=== PATIENT | male | born 1930 | race Caucasian/White ===

== ENCOUNTER 2017-08-14 10:31 | Inpatient (IN) ==
[2017-08-14] MEDS ORDERED: SODIUM CHLORIDE 0.9% 1,000 ML IV STA (11:36)
[2017-08-14 12:35] LABS: Basophils % 0.3 % (0.0-0.8); Eosinophils % 0.5 % (0.00-10.9); Hematocrit 34.4 VOL% (42.0-52.0); Immature Granulocytes % 0.8 %; Immature Granulocytes Absolute 0.05 #; Lymphocytes # 1.1 10*3/uL (1.4-4.0); Lymphocytes % 15.9 % (21.2-54.2); Mean Corpuscular HGB Conc 34.9 GM/DL (32-36); Mean Corpuscular Hemoglobin 32 PG (27-34); Mean Corpuscular Volume 91.2 FL (87-102); Mean Platelet Volume 11.3 FL (9.6-12.0); Monocytes # 1.2 10*3/uL (0.11-0.8); Monocytes % 18.2 % (1.7-12.7); Neutrophils # 4.2 10*3/uL (1.4-7.4); Neutrophils % 64.3 % (38.7-73.9); Platelet Count 161 T/CUMM (130-400); Red Blood Count 3.77 MC/CUMM (3.8-5.5); Red Cell Distribution Width 11.9 % (9.3-17.3); White Blood Count 6.6 T/CUMM (4-12)
[2017-08-14 12:40] LABS: INR 1.1; PT Patient Result 11.1 SECS
[2017-08-14 12:51] LABS: Alanine Aminotransferase 17 U/L (16-61); Albumin 3.7 G/DL (3.4-5.0); Alkaline Phosphatase 102 U/L (45-117); Aspartate Amino Transferase 25 U/L (0-37); Blood Urea Nitrogen 20 MG/DL (7-18); Glucose 104 MG/DL (74-106); Osmolality,Calculated 262.8 MOS/KG (273-304); Potassium 4.2 MMOL/L (3.5-5.1); Sodium 130 MMOL/L (136-145); Troponin I Only < 0.015 NG/ML (0.00-0.045)
[2017-08-14 13:33] LABS: Apearance,Urine CLEAR (Clear); Bilirubin,Urine Negative (Negative); Blood, Urine Negative (Negative); Glucose,Urine (UA) Negative (Negative); Hyaline Casts,Urine 6 /LPF (0-3); Ketones,Urine 5 mg/dL (Negative); Mucus,Urine Occasional /LPF (Occasional); Nitrite,Urine Negative (Negative); Protein,Urine Negative; RBC,Urine 2 /HPF (0-4); Squamous Epithelial Cell,Urine Occasional /HPF (0-10); Urine Color Yellow (Yellow); Urine Specific Gravity 1.011 (1.001-1.035); Urine Urobilinogen < 2.0 EU/DL (0.2-1.0); WBC,Urine 1 /HPF (0-6)
[2017-08-14 13:34] LABS: Lymphocytes 7 % (20-55); Platelet Estimate Adequate; Poikilocytosis Slight; Segmented Neutrophils 79 % (50-85); Tear Drop Cells Slight; Total Cells Counted 100
[2017-08-14 13:41] LABS: Barbiturates Screen,Urine Negative (Negative); Benzodiazepines Screen,Urine Negative (Negative); Cannabinoid Screen,Urine Negative (Negative); Opiate Screen,Urine Positive (Negative); Phencyclidine Screen,Urine Negative (Negative)
[2017-08-14] MEDS ORDERED: ONDANSETRON 4 MG/2 ML VIAL IV PRN (15:39)
[2017-08-14] MEDS: CYANOCOBALAMIN 500 MCG TABLET PO SCH (20:16)
[2017-08-14] MEDS: MAGNESIUM OXIDE 400 MG TABLET PO SCH (20:16)
[2017-08-14] MEDS: ATORVASTATIN 20 MG TABLET PO SCH (20:17)
[2017-08-14] MEDS: SODIUM CHLORIDE 0.9% 1,000 ML IV SCH (21:10)
[2017-08-15 02:44] LABS: Apearance,Urine CLEAR (Clear); Bilirubin,Urine Negative (Negative); Blood, Urine Moderate mg/dL (Negative); Glucose,Urine (UA) Negative (Negative); Ketones,Urine Negative (Negative); Mucus,Urine Occasional /LPF (Occasional); Nitrite,Urine Negative (Negative); Protein,Urine Negative; RBC,Urine 9 /HPF (0-4); Urine Color Straw (Yellow); Urine Specific Gravity 1.008 (1.001-1.035); Urine Urobilinogen < 2.0 EU/DL (0.2-1.0); WBC,Urine 1 /HPF (0-6)
[2017-08-15 05:19] LABS: Basophils % 0.3 % (0.0-0.8); Eosinophils % 0.3 % (0.00-10.9); Hematocrit 33.9 VOL% (42.0-52.0); Hemoglobin 11.7 GM/DL (14.0-18.0); Immature Granulocytes % 0.8 %; Immature Granulocytes Absolute 0.05 #; Lymphocytes % 16.5 % (21.2-54.2); Mean Corpuscular HGB Conc 34.5 GM/DL (32-36); Mean Corpuscular Hemoglobin 31 PG (27-34); Mean Corpuscular Volume 89.2 FL (87-102); Mean Platelet Volume 11.4 FL (9.6-12.0); Monocytes # 1.1 10*3/uL (0.11-0.8); Monocytes % 17.3 % (1.7-12.7); Neutrophils % 64.8 % (38.7-73.9); Platelet Count 151 T/CUMM (130-400); Red Cell Distribution Width 11.6 % (9.3-17.3); White Blood Count 6.2 T/CUMM (4-12)
[2017-08-15 05:48] LABS: Calcium 8.8 MG/DL (8.5-10.1); Osmolality,Calculated 268.4 MOS/KG (273-304); Potassium 3.9 MMOL/L (3.5-5.1)
[2017-08-15 05:49] LABS: Hypochromasia 1+; Lymphocytes 14 % (20-55); Microcytosis Slight; Segmented Neutrophils 71 % (50-85); Total Cells Counted 100
[2017-08-15 05:50] LABS: Platelet Estimate Adequate
[2017-08-15] MEDS: PANTOPRAZOLE 40 MG TABLET PO SCH (09:40)
[2017-08-15] MEDS: TAMSULOSIN 0.4 MG CAPSULE PO SCH (09:40)
[2017-08-15] MEDS: BENAZEPRIL 5 MG TABLET PO SCH (09:40)
[2017-08-15] MEDS: MAGNESIUM OXIDE 400 MG TABLET PO SCH ×2 (09:40→20:55)
[2017-08-15] MEDS: CYANOCOBALAMIN 500 MCG TABLET PO SCH ×2 (09:40→20:55)
[2017-08-15] MEDS: METOPROLOL TARTRATE 25 MG TABLET PO SCH (09:40)
[2017-08-15] MEDS ORDERED: ZIPRASIDONE 20 MG CAPSULE PO ONE (10:30)
[2017-08-15] MEDS ORDERED: HALOPERIDOL 5 MG/ML AMP IM ONE (15:52)
[2017-08-15] MEDS ORDERED: LORazepam 2 MG/1 ML VIAL IM ONE (15:53)
[2017-08-15] MEDS ORDERED: hydrALAZINE 20 MG/1 ML VIAL IV PRN (18:32)
[2017-08-15] MEDS: ATORVASTATIN 20 MG TABLET PO SCH (20:54)
[2017-08-16] MEDS ORDERED: LORazepam 2 MG/1 ML VIAL IM ONE (00:39)
[2017-08-16] MEDS ORDERED: HALOPERIDOL 5 MG/ML AMP IM ONE (00:39)
[2017-08-16 06:40] LABS: Calcium 8.9 MG/DL (8.5-10.1); Potassium 3.8 MMOL/L (3.5-5.1)
[2017-08-16 06:41] LABS: Basophils % 0.2 % (0.0-0.8); Hemoglobin 13.4 GM/DL (14.0-18.0); Immature Granulocytes % 0.6 %; Immature Granulocytes Absolute 0.07 #; Lymphocytes # 0.7 10*3/uL (1.4-4.0); Lymphocytes % 6.2 % (21.2-54.2); Mean Corpuscular HGB Conc 33.5 GM/DL (32-36); Mean Corpuscular Hemoglobin 31 PG (27-34); Mean Corpuscular Volume 91.7 FL (87-102); Mean Platelet Volume 11.6 FL (9.6-12.0); Monocytes # 1.5 10*3/uL (0.11-0.8); Platelet Count 177 T/CUMM (130-400); Red Blood Count 4.36 MC/CUMM (3.8-5.5); Red Cell Distribution Width 11.8 % (9.3-17.3); White Blood Count 11.3 T/CUMM (4-12)
[2017-08-16] MEDS ORDERED: ZIPRASIDONE 20 MG/1 ML VIAL IM PRN (08:44)
[2017-08-16] MEDS: METOPROLOL TARTRATE 25 MG TABLET PO SCH (09:27)
[2017-08-16] MEDS: CYANOCOBALAMIN 500 MCG TABLET PO SCH ×2 (09:27→20:44)
[2017-08-16] MEDS: PANTOPRAZOLE 40 MG TABLET PO SCH (09:27)
[2017-08-16] MEDS: BENAZEPRIL 5 MG TABLET PO SCH (09:27)
[2017-08-16] MEDS: TAMSULOSIN 0.4 MG CAPSULE PO SCH (09:28)
[2017-08-16] MEDS: MAGNESIUM OXIDE 400 MG TABLET PO SCH ×2 (09:28→20:43)
[2017-08-16 09:29] LABS: Basophils % 0.2 % (0.0-0.8); Hematocrit 39.7 VOL% (42.0-52.0); Hemoglobin 13.2 GM/DL (14.0-18.0); Immature Granulocytes % 0.7 %; Immature Granulocytes Absolute 0.08 #; Lymphocytes # 0.6 10*3/uL (1.4-4.0); Lymphocytes % 5.3 % (21.2-54.2); Mean Corpuscular HGB Conc 33.2 GM/DL (32-36); Mean Corpuscular Hemoglobin 30 PG (27-34); Mean Corpuscular Volume 91.5 FL (87-102); Mean Platelet Volume 11.2 FL (9.6-12.0); Monocytes # 1.3 10*3/uL (0.11-0.8); Monocytes % 10.8 % (1.7-12.7); Neutrophils # 10.1 10*3/uL (1.4-7.4); Platelet Count 192 T/CUMM (130-400); Red Blood Count 4.34 MC/CUMM (3.8-5.5); Red Cell Distribution Width 11.9 % (9.3-17.3); White Blood Count 12.1 T/CUMM (4-12)
[2017-08-16 09:59] LABS: Albumin 3.4 G/DL (3.4-5.0); Bilirubin,Total 1.2 MG/DL (0.2-1.0); Calcium 9.2 MG/DL (8.5-10.1); Osmolality,Calculated 275.1 MOS/KG (273-304); Potassium 3.8 MMOL/L (3.5-5.1)
[2017-08-16 13:46] LABS: Glucose,CSF 70 MG/DL (40-70)
[2017-08-16 14:10] LABS: Appearance,CSF Clear; Lymphocytes,CSF 83 %; Monocytes,CSF 12 %; Neutrophils,CSF 2 %; Red Blood Cell,CSF 160 C/CUMM; White Blood Cell,CSF 44 C/CUMM
[2017-08-16] MEDS: ATORVASTATIN 20 MG TABLET PO SCH (20:44)
[2017-08-16] MEDS: SODIUM CHLORIDE 0.9% 1,000 ML IV SCH (20:48)
[2017-08-17 05:32] LABS: Basophils % 0.1 % (0.0-0.8); Hematocrit 35.7 VOL% (42.0-52.0); Hemoglobin 12.4 GM/DL (14.0-18.0); Immature Granulocytes % 0.8 %; Immature Granulocytes Absolute 0.09 #; Lymphocytes # 0.9 10*3/uL (1.4-4.0); Lymphocytes % 7.4 % (21.2-54.2); Mean Corpuscular HGB Conc 34.7 GM/DL (32-36); Mean Corpuscular Hemoglobin 31 PG (27-34); Mean Corpuscular Volume 89.3 FL (87-102); Mean Platelet Volume 11.4 FL (9.6-12.0); Monocytes # 1.2 10*3/uL (0.11-0.8); Monocytes % 10.1 % (1.7-12.7); Neutrophils # 9.7 10*3/uL (1.4-7.4); Neutrophils % 81.6 % (38.7-73.9); Platelet Count 178 T/CUMM (130-400); Red Cell Distribution Width 11.9 % (9.3-17.3); White Blood Count 11.8 T/CUMM (4-12)
[2017-08-17 06:10] LABS: Calcium 8.4 MG/DL (8.5-10.1); Osmolality,Calculated 276.8 MOS/KG (273-304); Potassium 3.8 MMOL/L (3.5-5.1)
[2017-08-17] MEDS: PANTOPRAZOLE 40 MG TABLET PO SCH (09:19)
[2017-08-17] MEDS: METOPROLOL TARTRATE 25 MG TABLET PO SCH (09:19)
[2017-08-17] MEDS: MAGNESIUM OXIDE 400 MG TABLET PO SCH ×2 (09:20→21:29)
[2017-08-17] MEDS: CYANOCOBALAMIN 500 MCG TABLET PO SCH ×2 (09:20→21:29)
[2017-08-17] MEDS: BENAZEPRIL 5 MG TABLET PO SCH (09:20)
[2017-08-17] MEDS: TAMSULOSIN 0.4 MG CAPSULE PO SCH (09:20)
[2017-08-17] MEDS: cefTRIAXone 2,000 MG in SYRINGE 1 EACH IV SCH ×2 (09:32→21:30)
[2017-08-17] MEDS: AMPICILLIN INJ 2,000 MG in SODIUM CHLORIDE 0.9% 100 ML IV SCH ×3 (09:39→21:41)
[2017-08-17] MEDS: ACYCLOVIR INJ 850 MG in SODIUM CHLORIDE 0.9% 250 ML IV SCH ×2 (10:44→17:35)
[2017-08-17] MEDS: TROLAMINE SALICYLATE 10% CREAM 85 GM TUBE TOP PRN (15:14)
[2017-08-17] MEDS: ATORVASTATIN 20 MG TABLET PO SCH (21:29)
[2017-08-18] MEDS: ACYCLOVIR INJ 850 MG in SODIUM CHLORIDE 0.9% 250 ML IV SCH ×3 (00:50→17:02)
[2017-08-18] MEDS: AMPICILLIN INJ 2,000 MG in SODIUM CHLORIDE 0.9% 100 ML IV SCH ×2 (04:30→10:35)
[2017-08-18] MEDS: SODIUM CHLORIDE 0.9% 1,000 ML IV SCH (05:58)
[2017-08-18 06:31] LABS: Albumin 2.5 G/DL (3.4-5.0); Bilirubin,Total 0.8 MG/DL (0.2-1.0); Calcium 8.4 MG/DL (8.5-10.1); Osmolality,Calculated 276.7 MOS/KG (273-304); Potassium 3.5 MMOL/L (3.5-5.1); Total Protein 5.8 G/DL (6.4-8.3)
[2017-08-18 06:47] LABS: Basophils % 0.2 % (0.0-0.8); Eosinophils # 0.1 10*3/uL (0.0-0.87); Eosinophils % 0.5 % (0.00-10.9); Hematocrit 35.7 VOL% (42.0-52.0); Immature Granulocytes % 0.6 %; Immature Granulocytes Absolute 0.06 #; Lymphocytes # 0.8 10*3/uL (1.4-4.0); Lymphocytes % 7.1 % (21.2-54.2); Mean Corpuscular HGB Conc 33.6 GM/DL (32-36); Mean Corpuscular Hemoglobin 31 PG (27-34); Mean Platelet Volume 11.5 FL (9.6-12.0); Monocytes # 1.2 10*3/uL (0.11-0.8); Monocytes % 11.1 % (1.7-12.7); Neutrophils # 8.8 10*3/uL (1.4-7.4); Neutrophils % 80.5 % (38.7-73.9); Platelet Count 171 T/CUMM (130-400); Red Blood Count 3.88 MC/CUMM (3.8-5.5); Red Cell Distribution Width 11.8 % (9.3-17.3); White Blood Count 10.9 T/CUMM (4-12)
[2017-08-18] MEDS: TROLAMINE SALICYLATE 10% CREAM 85 GM TUBE TOP PRN (08:59)
[2017-08-18] MEDS: CYANOCOBALAMIN 500 MCG TABLET PO SCH ×2 (08:59→21:41)
[2017-08-18] MEDS: cefTRIAXone 2,000 MG in SYRINGE 1 EACH IV SCH ×2 (08:59→21:47)
[2017-08-18] MEDS: BENAZEPRIL 5 MG TABLET PO SCH (09:00)
[2017-08-18] MEDS: MAGNESIUM OXIDE 400 MG TABLET PO SCH ×2 (09:00→21:41)
[2017-08-18] MEDS: PANTOPRAZOLE 40 MG TABLET PO SCH (09:00)
[2017-08-18] MEDS: METOPROLOL TARTRATE 25 MG TABLET PO SCH (09:00)
[2017-08-18] MEDS: TAMSULOSIN 0.4 MG CAPSULE PO SCH (09:00)
[2017-08-18] MEDS: ACETAMINOPHEN 325 MG TABLET PO PRN (10:36)
[2017-08-18] MEDS: ATORVASTATIN 20 MG TABLET PO SCH (21:41)
[2017-08-19] MEDS: ACYCLOVIR INJ 850 MG in SODIUM CHLORIDE 0.9% 250 ML IV SCH ×3 (00:57→16:43)
[2017-08-19 05:35] LABS: Basophils % 0.2 % (0.0-0.8); Eosinophils # 0.1 10*3/uL (0.0-0.87); Eosinophils % 1.2 % (0.00-10.9); Hematocrit 31.2 VOL% (42.0-52.0); Hemoglobin 10.4 GM/DL (14.0-18.0); Immature Granulocytes % 0.8 %; Immature Granulocytes Absolute 0.07 #; Lymphocytes % 12.5 % (21.2-54.2); Mean Corpuscular HGB Conc 33.3 GM/DL (32-36); Mean Corpuscular Hemoglobin 30 PG (27-34); Mean Corpuscular Volume 91.2 FL (87-102); Mean Platelet Volume 10.9 FL (9.6-12.0); Monocytes # 1.1 10*3/uL (0.11-0.8); Neutrophils % 72.3 % (38.7-73.9); Platelet Count 168 T/CUMM (130-400); Red Blood Count 3.42 MC/CUMM (3.8-5.5); Red Cell Distribution Width 11.6 % (9.3-17.3); White Blood Count 8.3 T/CUMM (4-12)
[2017-08-19 05:59] LABS: Albumin 2.3 G/DL (3.4-5.0); Bilirubin,Total 0.6 MG/DL (0.2-1.0); Calcium 7.7 MG/DL (8.5-10.1); Osmolality,Calculated 270.1 MOS/KG (273-304); Potassium 3.3 MMOL/L (3.5-5.1); Total Protein 4.9 G/DL (6.4-8.3)
[2017-08-19] MEDS: ACETAMINOPHEN 325 MG TABLET PO PRN ×2 (06:30→15:35)
[2017-08-19] MEDS: MAGNESIUM OXIDE 400 MG TABLET PO SCH ×2 (09:04→21:21)
[2017-08-19] MEDS: METOPROLOL TARTRATE 25 MG TABLET PO SCH (09:04)
[2017-08-19] MEDS: PANTOPRAZOLE 40 MG TABLET PO SCH (09:04)
[2017-08-19] MEDS: CYANOCOBALAMIN 500 MCG TABLET PO SCH ×2 (09:04→21:21)
[2017-08-19] MEDS: TAMSULOSIN 0.4 MG CAPSULE PO SCH (09:04)
[2017-08-19] MEDS: BENAZEPRIL 5 MG TABLET PO SCH (09:05)
[2017-08-19] MEDS: cefTRIAXone 2,000 MG in SYRINGE 1 EACH IV SCH ×2 (09:06→21:21)
[2017-08-19] MEDS: SODIUM CHLORIDE 0.9% 1,000 ML IV SCH (09:07)
[2017-08-19] MEDS: POTASSIUM CHLORIDE 20 MEQ TABLET PO PRN ×2 (14:37→16:43)
[2017-08-19] MEDS: ATORVASTATIN 20 MG TABLET PO SCH (21:21)
[2017-08-20] MEDS: SODIUM CHLORIDE 0.9% 1,000 ML IV SCH (00:24)
[2017-08-20] MEDS: ACYCLOVIR INJ 850 MG in SODIUM CHLORIDE 0.9% 250 ML IV SCH ×3 (00:26→18:18)
[2017-08-20 05:25] LABS: Basophils % 0.3 % (0.0-0.8); Eosinophils # 0.3 10*3/uL (0.0-0.87); Eosinophils % 3.2 % (0.00-10.9); Hematocrit 33.8 VOL% (42.0-52.0); Hemoglobin 11.1 GM/DL (14.0-18.0); Immature Granulocytes % 1.4 %; Immature Granulocytes Absolute 0.13 #; Lymphocytes # 1.5 10*3/uL (1.4-4.0); Lymphocytes % 15.6 % (21.2-54.2); Mean Corpuscular HGB Conc 32.8 GM/DL (32-36); Mean Corpuscular Hemoglobin 30 PG (27-34); Mean Corpuscular Volume 92.1 FL (87-102); Mean Platelet Volume 11.2 FL (9.6-12.0); Monocytes # 1.2 10*3/uL (0.11-0.8); Monocytes % 12.7 % (1.7-12.7); Neutrophils # 6.2 10*3/uL (1.4-7.4); Neutrophils % 66.8 % (38.7-73.9); Platelet Count 188 T/CUMM (130-400); Red Blood Count 3.67 MC/CUMM (3.8-5.5); Red Cell Distribution Width 11.4 % (9.3-17.3); White Blood Count 9.3 T/CUMM (4-12)
[2017-08-20 06:02] LABS: Albumin 2.6 G/DL (3.4-5.0); Calcium 8.7 MG/DL (8.5-10.1); Osmolality,Calculated 274.7 MOS/KG (273-304); Potassium 3.8 MMOL/L (3.5-5.1); Total Protein 5.6 G/DL (6.4-8.3)
[2017-08-20 07:41] LABS: M. Tuberculosis PCR Result Negative (Negative); M. Tuberculosis PCR Source CSF
[2017-08-20] MEDS: CYANOCOBALAMIN 500 MCG TABLET PO SCH ×2 (09:35→21:39)
[2017-08-20] MEDS: BENAZEPRIL 5 MG TABLET PO SCH (09:35)
[2017-08-20] MEDS: METOPROLOL TARTRATE 25 MG TABLET PO SCH (09:35)
[2017-08-20] MEDS: TAMSULOSIN 0.4 MG CAPSULE PO SCH (09:35)
[2017-08-20] MEDS: PANTOPRAZOLE 40 MG TABLET PO SCH (09:35)
[2017-08-20] MEDS: MAGNESIUM OXIDE 400 MG TABLET PO SCH ×2 (09:35→21:39)
[2017-08-20] MEDS: cefTRIAXone 2,000 MG in SYRINGE 1 EACH IV SCH ×2 (09:36→21:42)
[2017-08-20] MEDS ORDERED: ALPRAZolam 0.5 MG TABLET PO PRN (15:17)
[2017-08-20] MEDS ORDERED: ALPRAZolam 0.5 MG TABLET PO ONE ×2 (15:17→23:00)
[2017-08-20] MEDS: QUEtiapine 25 MG TABLET PO SCH (18:18)
[2017-08-20] MEDS: ATORVASTATIN 20 MG TABLET PO SCH (21:40)
[2017-08-21] MEDS: TROLAMINE SALICYLATE 10% CREAM 85 GM TUBE TOP PRN (00:15)
[2017-08-21] MEDS: SODIUM CHLORIDE 0.9% 1,000 ML IV SCH (01:35)
[2017-08-21] MEDS: ACYCLOVIR INJ 850 MG in SODIUM CHLORIDE 0.9% 250 ML IV SCH ×2 (01:35→09:50)
[2017-08-21 05:44] LABS: Basophils % 0.2 % (0.0-0.8); Eosinophils # 0.1 10*3/uL (0.0-0.87); Eosinophils % 1.7 % (0.00-10.9); Hemoglobin 10.3 GM/DL (14.0-18.0); Immature Granulocytes % 1.7 %; Immature Granulocytes Absolute 0.14 #; Lymphocytes % 12.5 % (21.2-54.2); Mean Corpuscular HGB Conc 34.3 GM/DL (32-36); Mean Corpuscular Hemoglobin 30 PG (27-34); Mean Corpuscular Volume 88.5 FL (87-102); Mean Platelet Volume 10.8 FL (9.6-12.0); Monocytes % 12.5 % (1.7-12.7); Neutrophils % 71.4 % (38.7-73.9); Platelet Count 233 T/CUMM (130-400); Red Blood Count 3.39 MC/CUMM (3.8-5.5); Red Cell Distribution Width 11.6 % (9.3-17.3); White Blood Count 8.3 T/CUMM (4-12)
[2017-08-21 06:18] LABS: Calcium 7.8 MG/DL (8.5-10.1); Osmolality,Calculated 280.3 MOS/KG (273-304); Potassium 3.3 MMOL/L (3.5-5.1)
[2017-08-21] MEDS ORDERED: POTASSIUM CHLORIDE RIDER 20 MEQ in PREMIX 1 EACH IV ONE (09:00)
[2017-08-21] MEDS: MAGNESIUM OXIDE 400 MG TABLET PO SCH ×2 (09:43→20:43)
[2017-08-21] MEDS: CYANOCOBALAMIN 500 MCG TABLET PO SCH ×2 (09:43→20:44)
[2017-08-21] MEDS: PANTOPRAZOLE 40 MG TABLET PO SCH (09:43)
[2017-08-21] MEDS: TAMSULOSIN 0.4 MG CAPSULE PO SCH (09:44)
[2017-08-21] MEDS: BENAZEPRIL 5 MG TABLET PO SCH (09:44)
[2017-08-21] MEDS: METOPROLOL TARTRATE 25 MG TABLET PO SCH (09:44)
[2017-08-21] MEDS: cefTRIAXone 2,000 MG in SYRINGE 1 EACH IV SCH (09:47)
[2017-08-21] MEDS: SODIUM CHLOR 0.9% KCL 20 MEQ 20 MEQ/1,000 ML BAG IV SCH (10:55)
[2017-08-21] MEDS ORDERED: MAGNESIUM SULF RIDER 2 GM in PREMIX 1 EACH IV ONE (11:24)
[2017-08-21] MEDS: QUEtiapine 25 MG TABLET PO SCH (17:47)
[2017-08-21] MEDS: ATORVASTATIN 20 MG TABLET PO SCH (20:44)
[2017-08-22 01:48] LABS: Basophils % 0.3 % (0.0-0.8); Eosinophils # 0.3 10*3/uL (0.0-0.87); Eosinophils % 3.2 % (0.00-10.9); Hematocrit 35.5 VOL% (42.0-52.0); Hemoglobin 11.6 GM/DL (14.0-18.0); Immature Granulocytes % 2.4 %; Immature Granulocytes Absolute 0.21 #; Lymphocytes # 1.5 10*3/uL (1.4-4.0); Lymphocytes % 16.5 % (21.2-54.2); Mean Corpuscular HGB Conc 32.7 GM/DL (32-36); Mean Corpuscular Hemoglobin 30 PG (27-34); Mean Corpuscular Volume 92.7 FL (87-102); Mean Platelet Volume 11.7 FL (9.6-12.0); Monocytes # 0.9 10*3/uL (0.11-0.8); Monocytes % 10.4 % (1.7-12.7); Neutrophils # 5.9 10*3/uL (1.4-7.4); Neutrophils % 67.2 % (38.7-73.9); Platelet Count 196 T/CUMM (130-400); Red Blood Count 3.83 MC/CUMM (3.8-5.5); Red Cell Distribution Width 11.9 % (9.3-17.3); White Blood Count 8.8 T/CUMM (4-12)
[2017-08-22 02:13] LABS: Calcium 8.7 MG/DL (8.5-10.1); Osmolality,Calculated 279.4 MOS/KG (273-304); Potassium 3.9 MMOL/L (3.5-5.1)
[2017-08-22 04:37] LABS: Ovalocytes Slight
[2017-08-22 04:38] LABS: Hypochromasia 1+; Microcytosis Slight; Platelet Estimate Adequate
[2017-08-22] MEDS: BENAZEPRIL 5 MG TABLET PO SCH (08:55)
[2017-08-22] MEDS: MAGNESIUM OXIDE 400 MG TABLET PO SCH ×2 (08:55→21:31)
[2017-08-22] MEDS: CYANOCOBALAMIN 500 MCG TABLET PO SCH ×2 (08:55→21:30)
[2017-08-22] MEDS: METOPROLOL TARTRATE 25 MG TABLET PO SCH (08:56)
[2017-08-22] MEDS: PANTOPRAZOLE 40 MG TABLET PO SCH (08:57)
[2017-08-22] MEDS: TAMSULOSIN 0.4 MG CAPSULE PO SCH (08:57)
[2017-08-22] MEDS: SODIUM CHLOR 0.9% KCL 20 MEQ 20 MEQ/1,000 ML BAG IV SCH (08:59)
[2017-08-22] MEDS ORDERED: cefTRIAXone 2,000 MG in SYRINGE 1 EACH IV SCH (09:00)
[2017-08-22] MEDS ORDERED: SODIUM CHLOR 0.9% KCL 20 MEQ 20 MEQ/1,000 ML BAG IV SCH (09:00)
[2017-08-22] MEDS: ACETAMINOPHEN 325 MG TABLET PO PRN (17:39)
[2017-08-22] MEDS: QUEtiapine 25 MG TABLET PO SCH (17:39)
[2017-08-22] MEDS: ATORVASTATIN 20 MG TABLET PO SCH (21:30)
[2017-08-22] MEDS: MEMANTINE 5 MG TABLET PO SCH (21:31)
[2017-08-23] MEDS: SODIUM CHLOR 0.9% KCL 20 MEQ 20 MEQ/1,000 ML BAG IV SCH (04:13)
[2017-08-23 06:17] LABS: Basophils % 0.2 % (0.0-0.8); Eosinophils # 0.2 10*3/uL (0.0-0.87); Eosinophils % 1.3 % (0.00-10.9); Hematocrit 32.7 VOL% (42.0-52.0); Hemoglobin 10.9 GM/DL (14.0-18.0); Immature Granulocytes % 2.2 %; Immature Granulocytes Absolute 0.28 #; Lymphocytes # 1.4 10*3/uL (1.4-4.0); Mean Corpuscular HGB Conc 33.3 GM/DL (32-36); Mean Corpuscular Hemoglobin 31 PG (27-34); Mean Corpuscular Volume 92.1 FL (87-102); Mean Platelet Volume 10.5 FL (9.6-12.0); Monocytes # 1.1 10*3/uL (0.11-0.8); Monocytes % 8.2 % (1.7-12.7); Neutrophils # 9.9 10*3/uL (1.4-7.4); Neutrophils % 77.1 % (38.7-73.9); Platelet Count 271 T/CUMM (130-400); Red Blood Count 3.55 MC/CUMM (3.8-5.5); Red Cell Distribution Width 11.7 % (9.3-17.3); White Blood Count 12.9 T/CUMM (4-12)
[2017-08-23 06:50] LABS: Calcium 8.4 MG/DL (8.5-10.1); Osmolality,Calculated 278.5 MOS/KG (273-304); Potassium 3.9 MMOL/L (3.5-5.1)
[2017-08-23] MEDS: MEMANTINE 5 MG TABLET PO SCH ×2 (08:54→22:26)
[2017-08-23] MEDS: CYANOCOBALAMIN 500 MCG TABLET PO SCH ×2 (08:54→22:25)
[2017-08-23] MEDS: MAGNESIUM OXIDE 400 MG TABLET PO SCH ×2 (08:54→22:25)
[2017-08-23] MEDS: BENAZEPRIL 5 MG TABLET PO SCH (08:54)
[2017-08-23] MEDS: METOPROLOL TARTRATE 25 MG TABLET PO SCH (08:54)
[2017-08-23] MEDS: PANTOPRAZOLE 40 MG TABLET PO SCH (08:54)
[2017-08-23] MEDS: TAMSULOSIN 0.4 MG CAPSULE PO SCH (08:56)
[2017-08-23] MEDS ORDERED: TUBERCULIN SKIN TEST 0.1 ML SYRINGE INTRADERM ONE (16:38)
[2017-08-23] MEDS: ACETAMINOPHEN 325 MG TABLET PO PRN (17:33)
[2017-08-23] MEDS: QUEtiapine 25 MG TABLET PO SCH (17:33)
[2017-08-23] MEDS: ATORVASTATIN 20 MG TABLET PO SCH (22:26)
[2017-08-24] MEDS: SODIUM CHLOR 0.9% KCL 20 MEQ 20 MEQ/1,000 ML BAG IV SCH ×2 (05:20→06:26)
[2017-08-24 05:50] LABS: Basophils % 0.4 % (0.0-0.8); Eosinophils # 0.2 10*3/uL (0.0-0.87); Eosinophils % 2.1 % (0.00-10.9); Hematocrit 33.7 VOL% (42.0-52.0); Immature Granulocytes % 3.9 %; Immature Granulocytes Absolute 0.38 #; Lymphocytes # 1.3 10*3/uL (1.4-4.0); Lymphocytes % 13.6 % (21.2-54.2); Mean Corpuscular HGB Conc 32.6 GM/DL (32-36); Mean Corpuscular Hemoglobin 31 PG (27-34); Mean Corpuscular Volume 93.6 FL (87-102); Mean Platelet Volume 10.7 FL (9.6-12.0); Monocytes # 0.9 10*3/uL (0.11-0.8); Neutrophils # 6.9 10*3/uL (1.4-7.4); Platelet Count 236 T/CUMM (130-400); Red Cell Distribution Width 11.7 % (9.3-17.3); White Blood Count 9.7 T/CUMM (4-12)
[2017-08-24 06:22] LABS: Calcium 8.6 MG/DL (8.5-10.1)
[2017-08-24] MEDS: TAMSULOSIN 0.4 MG CAPSULE PO SCH (09:24)
[2017-08-24] MEDS: MAGNESIUM OXIDE 400 MG TABLET PO SCH ×2 (09:24→21:14)
[2017-08-24] MEDS: TROLAMINE SALICYLATE 10% CREAM 85 GM TUBE TOP PRN (09:24)
[2017-08-24] MEDS: CYANOCOBALAMIN 500 MCG TABLET PO SCH ×2 (09:24→21:15)
[2017-08-24] MEDS: METOPROLOL TARTRATE 25 MG TABLET PO SCH (09:24)
[2017-08-24] MEDS: BENAZEPRIL 5 MG TABLET PO SCH (09:24)
[2017-08-24] MEDS: MEMANTINE 5 MG TABLET PO SCH ×2 (09:24→21:14)
[2017-08-24] MEDS: PANTOPRAZOLE 40 MG TABLET PO SCH (09:24)
[2017-08-24] MEDS: ACETAMINOPHEN 325 MG TABLET PO PRN (17:02)
[2017-08-24] MEDS: QUEtiapine 25 MG TABLET PO SCH (17:04)
[2017-08-24] MEDS: ATORVASTATIN 20 MG TABLET PO SCH (21:14)
[2017-08-25] MEDS: TAMSULOSIN 0.4 MG CAPSULE PO SCH (08:20)
[2017-08-25] MEDS: CYANOCOBALAMIN 500 MCG TABLET PO SCH ×2 (08:20→20:59)
[2017-08-25] MEDS: MEMANTINE 5 MG TABLET PO SCH ×2 (08:20→20:58)
[2017-08-25] MEDS: PANTOPRAZOLE 40 MG TABLET PO SCH (08:20)
[2017-08-25] MEDS: MAGNESIUM OXIDE 400 MG TABLET PO SCH ×2 (08:20→20:58)
[2017-08-25] MEDS: METOPROLOL TARTRATE 25 MG TABLET PO SCH (08:20)
[2017-08-25] MEDS: BENAZEPRIL 5 MG TABLET PO SCH (08:20)
[2017-08-25] MEDS: QUEtiapine 25 MG TABLET PO SCH (17:32)
[2017-08-25] MEDS: ATORVASTATIN 20 MG TABLET PO SCH (20:58)
[2017-08-25] MEDS: SODIUM CHLOR 0.9% KCL 20 MEQ 20 MEQ/1,000 ML BAG IV SCH (21:03)
[2017-08-25] MEDS: TROLAMINE SALICYLATE 10% CREAM 85 GM TUBE TOP PRN (21:04)
[2017-08-26] MEDS: MEMANTINE 5 MG TABLET PO SCH ×2 (08:24→21:23)
[2017-08-26] MEDS: BENAZEPRIL 5 MG TABLET PO SCH (08:24)
[2017-08-26] MEDS: METOPROLOL TARTRATE 25 MG TABLET PO SCH (08:24)
[2017-08-26] MEDS: ACETAMINOPHEN 325 MG TABLET PO PRN (08:24)
[2017-08-26] MEDS: MAGNESIUM OXIDE 400 MG TABLET PO SCH ×2 (08:25→21:23)
[2017-08-26] MEDS: PANTOPRAZOLE 40 MG TABLET PO SCH (08:25)
[2017-08-26] MEDS: TAMSULOSIN 0.4 MG CAPSULE PO SCH (08:25)
[2017-08-26] MEDS: CYANOCOBALAMIN 500 MCG TABLET PO SCH ×2 (08:26→21:23)
[2017-08-26] MEDS: QUEtiapine 25 MG TABLET PO SCH (17:34)
[2017-08-26] MEDS ORDERED: LORazepam 2 MG/1 ML VIAL IV PRN (21:01)
[2017-08-26] MEDS: ATORVASTATIN 20 MG TABLET PO SCH (21:23)
[2017-08-26] MEDS ORDERED: HALOPERIDOL 5 MG/ML AMP IV ONE (21:30)
[2017-08-27 08:17] LABS: Basophils # 0.1 10*3/uL (0.0-0.2); Basophils % 0.4 % (0.0-0.8); Eosinophils # 0.2 10*3/uL (0.0-0.87); Eosinophils % 1.6 % (0.00-10.9); Hematocrit 36.6 VOL% (42.0-52.0); Hemoglobin 12.3 GM/DL (14.0-18.0); Immature Granulocytes Absolute 0.36 #; Lymphocytes # 1.8 10*3/uL (1.4-4.0); Lymphocytes % 14.8 % (21.2-54.2); Mean Corpuscular HGB Conc 33.6 GM/DL (32-36); Mean Corpuscular Hemoglobin 31 PG (27-34); Mean Corpuscular Volume 92.2 FL (87-102); Mean Platelet Volume 10.1 FL (9.6-12.0); Monocytes # 1.1 10*3/uL (0.11-0.8); Monocytes % 9.4 % (1.7-12.7); Neutrophils # 8.5 10*3/uL (1.4-7.4); Neutrophils % 70.8 % (38.7-73.9); Platelet Count 303 T/CUMM (130-400); Red Blood Count 3.97 MC/CUMM (3.8-5.5); Red Cell Distribution Width 11.9 % (9.3-17.3); White Blood Count 11.9 T/CUMM (4-12)
[2017-08-27 08:51] LABS: Calcium 9.3 MG/DL (8.5-10.1); Osmolality,Calculated 276.7 MOS/KG (273-304); Potassium 4.2 MMOL/L (3.5-5.1)
[2017-08-27] MEDS: ACETAMINOPHEN 325 MG TABLET PO PRN (09:01)
[2017-08-27] MEDS: TAMSULOSIN 0.4 MG CAPSULE PO SCH (09:02)
[2017-08-27] MEDS: METOPROLOL TARTRATE 25 MG TABLET PO SCH (09:02)
[2017-08-27] MEDS: MAGNESIUM OXIDE 400 MG TABLET PO SCH (09:02)
[2017-08-27] MEDS: MEMANTINE 5 MG TABLET PO SCH (09:02)
[2017-08-27] MEDS: BENAZEPRIL 5 MG TABLET PO SCH (09:02)
[2017-08-27] MEDS: PANTOPRAZOLE 40 MG TABLET PO SCH (09:02)
[2017-08-27] MEDS: CYANOCOBALAMIN 500 MCG TABLET PO SCH (09:03)
[2017-08-27 12:02] VITALS: BP 134/86
[2017-09-01 09:56] LABS: Niacin (Nicotinic Acid) 4.95 ug/mL
== END 2017-08-27 02:45 | disposition swing bed (61) | DRG 97 ==
LOC: N.ED 10:31 → N.EDINP 14:04 → N.2E 15:14
PROVIDERS: ADMIT Family Medicine; ATTEND Family Medicine

== ENCOUNTER 2018-11-14 09:34 | Inpatient (IN) ==
[2018-11-14] MEDS ORDERED: SODIUM CHLORIDE 0.9% 500 ML IV STA (10:31)
[2018-11-14 11:15] LABS: Basophils % 0.3 % (0.0-0.8); Eosinophils # 0.2 10*3/uL (0.0-0.87); Eosinophils % 3.4 % (0.00-10.9); Hematocrit 34.6 VOL% (42.0-52.0); Immature Granulocytes % 0.8 %; Immature Granulocytes Absolute 0.05 #; Lymphocytes # 1.1 10*3/uL (1.4-4.0); Lymphocytes % 17.8 % (21.2-54.2); Mean Corpuscular HGB Conc 31.8 GM/DL (32-36); Mean Platelet Volume 10.8 FL (9.6-12.0); Monocytes % 10.1 % (1.7-12.7); Neutrophils % 67.6 % (38.7-73.9); Platelet Count 150 T/CUMM (130-400); Red Blood Count 3.53 MC/CUMM (3.8-5.5); Red Cell Distribution Width 12.2 % (9.3-17.3)
[2018-11-14 11:23] LABS: PT Patient Result 11.2 SECS; Partial Thromboplastin Time 26.5 SECS (0-40)
[2018-11-14 11:47] LABS: Albumin 3.4 G/DL (3.4-5.0); Bilirubin,Total 0.5 MG/DL (0.2-1.0); Calcium 8.8 MG/DL (8.5-10.1); Osmolality,Calculated 287.3 MOS/KG (273-304); Thyroid Stimulating Hormone 0.78 uIU/ml (0.358-3.74); Total Protein 6.2 G/DL (6.4-8.3)
[2018-11-14 12:29] LABS: Apearance,Urine CLEAR (Clear); Bilirubin,Urine Negative (Negative); Blood, Urine Negative (Negative); Glucose,Urine (UA) Negative (Negative); Hyaline Casts,Urine 4 /LPF (0-3); Ketones,Urine Negative (Negative); Mucus,Urine Occasional /LPF (Occasional); Nitrite,Urine Negative (Negative); Protein,Urine Negative; RBC,Urine <1 /HPF (0-4); Urine Color Yellow (Yellow); Urine Specific Gravity 1.011 (1.001-1.035); Urine Urobilinogen < 2.0 EU/DL (0.2-1.0); WBC,Urine <1 /HPF (0-6)
[2018-11-14] MEDS ORDERED: ACETAMINOPHEN 325 MG TABLET PO PRN (13:14)
[2018-11-14] MEDS ORDERED: ONDANSETRON 4 MG/2 ML VIAL IV PRN (13:14)
[2018-11-14] MEDS ORDERED: SODIUM CHLORIDE 0.9% 1,000 ML IV SCH (14:00)
[2018-11-15 03:13] VITALS: BP 132/69
[2018-11-15 05:46] LABS: Basophils % 0.3 % (0.0-0.8); Eosinophils # 0.1 10*3/uL (0.0-0.87); Eosinophils % 1.5 % (0.00-10.9); Hematocrit 34.9 VOL% (42.0-52.0); Immature Granulocytes % 0.6 %; Immature Granulocytes Absolute 0.05 #; Lymphocytes # 1.1 10*3/uL (1.4-4.0); Lymphocytes % 12.9 % (21.2-54.2); Mean Corpuscular HGB Conc 31.5 GM/DL (32-36); Mean Corpuscular Volume 97.5 FL (87-102); Mean Platelet Volume 10.6 FL (9.6-12.0); Monocytes % 9.1 % (1.7-12.7); Neutrophils % 75.6 % (38.7-73.9); Platelet Count 163 T/CUMM (130-400); Red Blood Count 3.58 MC/CUMM (3.8-5.5); Red Cell Distribution Width 11.9 % (9.3-17.3); White Blood Count 8.7 T/CUMM (4-12)
[2018-11-15 06:16] LABS: Calcium 8.9 MG/DL (8.5-10.1); Osmolality,Calculated 285.3 MOS/KG (273-304); Risk Ratio 2.5
[2018-11-15] MEDS ORDERED: PANTOPRAZOLE 40 MG TABLET PO SCH (09:00)
== END 2018-11-15 08:24 | disposition left against medical advice (07) | DRG 641 ==
LOC: N.ED 09:34 → N.EDINP 13:05 → N.5E 14:18
PROVIDERS: ADMIT Internal Medicine; ATTEND Internal Medicine